=== PATIENT | male | born 1945 | race Caucasian/White ===

== ENCOUNTER → 2020-06-22 10:24 | Outpatient (BNVA) | payer OTHER, SELFPAY | PROVIDERS: Family Provider Family Medicine; PCP Nurse Practitioner; Visit Provider Internal Medicine | DX: M35.3 Polymyalgia rheumatica (principal); F17.220 Nicotine dependence, chewing tobacco, uncomplicated | CPT/HCPCS: 99203 ==

== ENCOUNTER 2020-07-05 09:12 | Outpatient (CLI) | payer OTHER, SELFPAY ==
--- NOTE | 2020-07-05 09:16 | US_ITS ---
WS: [id number] THYROID ULTRASOUND (TI-RADS CRITERIA) History: RIGHT neck mass.. Technique: Ultrasound examination of the thyroid and adjacent soft tissues is performed. FINDINGS: Right lobe: 4.8 cm x 2.2 cm x 2.4 cm. Volume: 13.0 cm3. Moderately enlarged thyroid lobe coarsened echotexture. There are several hypoechoic nodules througho ut the gland. These nodules contain central echogenic foci with comet tail artifact. Isoechoic mass w ith a maximum diameter of 8 mm in the mid thyroid. Left lobe: 5.9 cm x 2.1 cm x 1.7 cm. Volume: 11.0 cm3. Moderately enlarged thyroid lobe. Coarsened echotexture. Multiple hypoechoic nodules are present. Hyp oechoic nodule contains echogenic foci with comet tail artifact. Isthmus: 0.5 cm. US/US thyroid [id number] Impression: 1. Enlarged thyroid with bilateral colloid cysts and subcentimeter nodules. 2. No ultrasound follow-up necessary of any of the nodules.
== END 2020-07-05 09:13 | disposition home or self-care (01) ==
LOC: RAD 09:15
PROVIDERS: PCP Nurse Practitioner; Visit Provider Nurse Practitioner
DX: R22.1 Localized swelling, mass and lump, neck (principal); E04.9 Nontoxic goiter, unspecified
CPT/HCPCS: 76536

== ENCOUNTER → 2020-07-26 09:40 | Outpatient (BNVA) | payer OTHER, SELFPAY | PROVIDERS: PCP Nurse Practitioner; Visit Provider Internal Medicine | DX: M35.3 Polymyalgia rheumatica (principal); Z79.52 Long term (current) use of systemic steroids; I10 Essential (primary) hypertension; F17.220 Nicotine dependence, chewing tobacco, uncomplicated | CPT/HCPCS: 99213; 99214 ==

== ENCOUNTER → 2020-09-28 08:42 | Outpatient (BNVA) | payer OTHER, SELFPAY | PROVIDERS: PCP Nurse Practitioner; Visit Provider Internal Medicine | DX: M35.3 Polymyalgia rheumatica (principal); Z79.52 Long term (current) use of systemic steroids; F17.220 Nicotine dependence, chewing tobacco, uncomplicated; Z11.59 Encounter for screening for other viral diseases | CPT/HCPCS: 99214 ==

== ENCOUNTER → 2020-12-28 09:00 | Outpatient (BNVA) | payer OTHER, SELFPAY | PROVIDERS: PCP Nurse Practitioner; Visit Provider Internal Medicine | DX: M35.3 Polymyalgia rheumatica (principal); M32.9 Systemic lupus erythematosus, unspecified; Z79.899 Other long term (current) drug therapy; Z79.52 Long term (current) use of systemic steroids; Z11.1 Encounter for screening for respiratory tuberculosis; F17.220 Nicotine dependence, chewing tobacco, uncomplicated | CPT/HCPCS: 36415; 83516; 86480; 99213; 99214 ==

== ENCOUNTER → 2021-02-21 14:22 | Outpatient (BNVA) | payer OTHER, SELFPAY | PROVIDERS: PCP Nurse Practitioner; Referring Provider Nurse Practitioner; Visit Provider Urology | DX: R97.20 Elevated prostate specific antigen [PSA] (principal); Z80.42 Family history of malignant neoplasm of prostate | CPT/HCPCS: 81003; 84153 ==

== ENCOUNTER → 2021-05-01 14:21 | Outpatient (BNVA) | payer OTHER, SELFPAY | PROVIDERS: PCP Nurse Practitioner; Visit Provider Internal Medicine | DX: M35.3 Polymyalgia rheumatica (principal); Z79.899 Other long term (current) drug therapy; Z79.52 Long term (current) use of systemic steroids; Z87.891 Personal history of nicotine dependence | CPT/HCPCS: 99214 ==

== ENCOUNTER → 2021-07-25 11:16 | Outpatient (BNVA) | payer OTHER, SELFPAY | PROVIDERS: PCP Nurse Practitioner; Visit Provider Internal Medicine | DX: Z79.899 Other long term (current) drug therapy (principal); M35.3 Polymyalgia rheumatica | CPT/HCPCS: 80053; 82550; 85025; 85651; 86140 ==

== ENCOUNTER → 2021-08-07 09:46 | Outpatient (BNVA) | payer OTHER, SELFPAY | PROVIDERS: PCP Nurse Practitioner; Visit Provider Internal Medicine | DX: M35.3 Polymyalgia rheumatica (principal); Z79.899 Other long term (current) drug therapy; Z79.52 Long term (current) use of systemic steroids; R21 Rash and other nonspecific skin eruption; Z87.891 Personal history of nicotine dependence | CPT/HCPCS: 99214 ==

== ENCOUNTER → 2021-11-01 10:25 | Outpatient (BNVA) | payer OTHER, SELFPAY | PROVIDERS: PCP Nurse Practitioner; Visit Provider Internal Medicine | DX: M35.3 Polymyalgia rheumatica (principal); Z79.899 Other long term (current) drug therapy; Z79.52 Long term (current) use of systemic steroids; F17.220 Nicotine dependence, chewing tobacco, uncomplicated | CPT/HCPCS: 99214 ==

== ENCOUNTER → 2021-11-06 12:55 | Outpatient (BNVA) | payer OTHER, SELFPAY | PROVIDERS: PCP Nurse Practitioner; Visit Provider Urology | DX: R97.20 Elevated prostate specific antigen [PSA] (principal); Z80.42 Family history of malignant neoplasm of prostate | CPT/HCPCS: 81003; 84153 ==

== ENCOUNTER → 2022-04-09 13:33 | Outpatient (BNVA) | payer OTHER, SELFPAY | PROVIDERS: PCP Nurse Practitioner; Referring Provider Internal Medicine Rheumatology; Visit Provider Internal Medicine Rheumatology | DX: M35.3 Polymyalgia rheumatica (principal); Z79.899 Other long term (current) drug therapy | CPT/HCPCS: 80053; 82550; 85025; 85651; 86140 ==

== ENCOUNTER 2022-05-17 09:04 | Outpatient (CLI) | payer OTHER, SELFPAY ==
[2022-05-17 09:59] LABS: Prostate Specific AG Urology 3.48 ng/mL (0-4)
== END 2022-05-17 09:05 | disposition home or self-care (01) ==
LOC: LAB 09:10
PROVIDERS: PCP Nurse Practitioner; Visit Provider Urology
DX: R97.20 Elevated prostate specific antigen [PSA] (principal); Z80.42 Family history of malignant neoplasm of prostate
CPT/HCPCS: 36415; 81003; 84153; 99213

== ENCOUNTER → 2022-07-31 09:33 | Outpatient (BNVA) | payer OTHER, SELFPAY | PROVIDERS: PCP Nurse Practitioner; Visit Provider Internal Medicine | DX: M19.90 Unspecified osteoarthritis, unspecified site (principal); M35.3 Polymyalgia rheumatica; Z79.899 Other long term (current) drug therapy | CPT/HCPCS: 80053; 85025; 85651; 86140 ==

== ENCOUNTER → 2022-11-02 10:45 | Outpatient (BNVA) | payer OTHER, SELFPAY | PROVIDERS: PCP Nurse Practitioner; Visit Provider Internal Medicine | DX: M35.3 Polymyalgia rheumatica (principal); R97.20 Elevated prostate specific antigen [PSA]; R21 Rash and other nonspecific skin eruption; Z79.52 Long term (current) use of systemic steroids | CPT/HCPCS: 99213 ==

== ENCOUNTER → 2022-11-13 14:52 | Outpatient (BNVA) | payer OTHER, SELFPAY | PROVIDERS: PCP Nurse Practitioner; Referring Provider Nurse Practitioner; Visit Provider Nurse Practitioner Family | DX: L21.8 Other seborrheic dermatitis (principal); L57.0 Actinic keratosis; I87.2 Venous insufficiency (chronic) (peripheral) | CPT/HCPCS: 17000; 17003; 99204 ==

== ENCOUNTER → 2023-03-06 10:34 | Outpatient (BNVA) | payer OTHER, SELFPAY | PROVIDERS: PCP Nurse Practitioner; Visit Provider Internal Medicine | DX: M35.3 Polymyalgia rheumatica (principal) | CPT/HCPCS: 80053; 85025; 85651; 86140 ==

== ENCOUNTER → 2023-03-08 09:02 | Outpatient (BNVA) | payer OTHER, SELFPAY | PROVIDERS: PCP Nurse Practitioner; Visit Provider Internal Medicine | DX: M35.3 Polymyalgia rheumatica (principal); Z79.899 Other long term (current) drug therapy | CPT/HCPCS: 99214 ==

== ENCOUNTER → 2023-08-09 08:28 | Outpatient (BNVA) | payer OTHER, SELFPAY | PROVIDERS: PCP Nurse Practitioner; Visit Provider Internal Medicine | DX: M35.3 Polymyalgia rheumatica (principal); Z79.899 Other long term (current) drug therapy | CPT/HCPCS: 80053; 85025; 85651; 86140; 99214 ==

== ENCOUNTER → 2023-11-26 09:13 | Outpatient (BNVA) | payer OTHER, SELFPAY | PROVIDERS: PCP Nurse Practitioner; Referring Provider Internal Medicine Rheumatology; Visit Provider Internal Medicine Rheumatology | DX: Z79.899 Other long term (current) drug therapy (principal); M35.3 Polymyalgia rheumatica | CPT/HCPCS: 80076; 82565; 85025; 86140 ==

== ENCOUNTER → 2023-11-27 08:56 | Outpatient (BNVA) | payer OTHER, SELFPAY | PROVIDERS: PCP Nurse Practitioner; Visit Provider Internal Medicine Rheumatology | DX: M35.3 Polymyalgia rheumatica (principal); M25.50 Pain in unspecified joint; Z79.899 Other long term (current) drug therapy | CPT/HCPCS: 99214 ==

== ENCOUNTER 2024-05-22 10:20 | Outpatient (CLI) | payer OTHER, SELFPAY ==
[2024-05-22 10:47] LABS: Basophils % 0.4 %; Eosinophils # 0.1 10^3/uL (0.0-0.8); Eosinophils % 2.5 %; Hematocrit 46.7 % (37-53); Lymphocytes # 1.4 10^3/uL (0.8-4.8); Lymphocytes % 25.6 %; Mean Corpuscular HGB Conc 33.2 g/dL (30-55); Mean Corpuscular Hemoglobin 30.3 pg (27-33); Mean Corpuscular Volume 91.2 fl (82-101); Mean Platelet Volume 9.1 fL (7.4-10.4); Monocytes # 0.5 10^3/uL (0.2-0.9); Monocytes % 9.3 %; Neutrophils # 3.26 10^3/uL (1.8-7.7); Neutrophils % 61.8 %; Nucleated Red Blood Cells % 0 %; Platelet Count 235 10^3/cmm (157-399); Red Blood Count 5.12 10^6/uL (3.85-5.65); Red Cell Distribution Width 13.2 % (12.1-15.1); White Blood Count 5.27 10^3/uL (3.29-11.43)
[2024-05-22 11:10] LABS: Alanine Aminotransferase 19 U/L (0-41); Albumin Level 4.1 g/dL (3.5-5.2); Alkaline Phosphatase 79 U/L (40-130); Aspartate Amino Transferase 15 U/L (0-40); C Reactive Protein 8.3 mg/L (0.0-4.9); Globulin 2.5 g/dL (1.3-4.6); Total Bilirubin 0.4 mg/dL (0.15-1.2); Total Protein 6.6 g/dL (6.6-8.7)
== END 2024-05-22 10:21 | disposition home or self-care (01) ==
PROVIDERS: PCP Nurse Practitioner; Visit Provider Internal Medicine Rheumatology
DX: M35.3 Polymyalgia rheumatica (principal)
CPT/HCPCS: 36415; 80076; 82565; 85025; 86140

== ENCOUNTER → 2024-05-27 08:59 | Outpatient (BNVA) | payer OTHER, SELFPAY | PROVIDERS: PCP Nurse Practitioner; Visit Provider Internal Medicine Rheumatology | DX: M35.3 Polymyalgia rheumatica (principal); Z79.899 Other long term (current) drug therapy; M13.0 Polyarthritis, unspecified | CPT/HCPCS: 99214 ==

== ENCOUNTER → 2024-10-28 10:24 | Outpatient (BNVA) | payer OTHER, SELFPAY | PROVIDERS: PCP Nurse Practitioner; Referring Provider Nurse Practitioner; Visit Provider Nurse Practitioner Family | DX: L21.8 Other seborrheic dermatitis (principal); I87.2 Venous insufficiency (chronic) (peripheral); L82.1 Other seborrheic keratosis; L82.0 Inflamed seborrheic keratosis; Z78.9 Other specified health status; L29.89 Other pruritus; L57.0 Actinic keratosis | CPT/HCPCS: 17000; 17110; 99214 ==

== ENCOUNTER 2024-11-09 13:37 | Outpatient (CLI) | payer OTHER, MEDICARE, SELFPAY ==
--- NOTE | 2024-11-09 13:47 | CT_ITS ---
WS: [id number] CT chest w con* [id number] HISTORY: DENSITY SUPERIMPOSING T2 ?OSTEOARTHRITIS TECHNIQUE: Axial imaging performed through the thorax. Coronal and sagittal reformats are submitted. All CT scans at [facility] use at least one of these dose optimization techniques: automated exposure control; mA and/or kV adjustment per patient size (includes targeted exams where dose is matched to clinical indication); or iterative reconstruction. CONTRAST: Omnipaque 350; 100 mL IV. DLP: 585.25 mGy.cm COMPARISON: None available. Lungs and central airway: 3 mm pleural nodule LEFT upper lobe. No pulmonary mass or pneumonia. Subsegmental atelectasis RIGHT middle lobe and RIGHT lower lobe. No endobronchial lesions. Pleura: Normal. No pleural effusion. Heart and pericardium: Normal size heart with no pericardial effusion. Mediastinum and quyen: No mediastinum or hilar adenopathy. Vessels: Mild atherosclerosis aorta. Minimally ectatic ascending aorta up to 3.7 cm. Normal pulmonary artery. Chest wall and lower neck: Bilateral thyroid nodules. The largest LEFT lower lobe is 11 mm. No adenopathy. No chest wall abnormalities. Upper abdomen: Diffuse hepatic steatosis. Normal portal vein. Normal RIGHT adrenal gland. 12 mm LEFT adrenal adenoma. Prior cholecystectomy. Supraumbilical hernia containing fat only. Osseous structures: RIGHT anterolateral hypertrophic osteophytes. No T2 abnormality. No rib lesions. Mild bilateral SC joint disease. CT/CT chest w con* [id number] IMPRESSION: 1. No destructive lesion at T2. 2. RIGHT lateral hypertrophic osteophytes from T3-T12. 3. No pulmonary mass or nodule. 4. Minimally ectatic thoracic aorta. 5. LEFT adrenal adenoma. 6. Supraumbilical hernia contains fat only.
[2024-11-09] MEDS: iohexol 350 mg/mL 500 mL Btl (per mL) IV (14:11)
== END 2024-11-09 13:38 | disposition home or self-care (01) ==
LOC: RAD 13:41
PROVIDERS: PCP Nurse Practitioner; Visit Provider Nurse Practitioner
DX: Z01.89 Encounter for other specified special examinations (principal); M25.78 Osteophyte, vertebrae; D35.02 Benign neoplasm of left adrenal gland; K43.9 Ventral hernia without obstruction or gangrene; R91.1 Solitary pulmonary nodule; J98.11 Atelectasis; I70.0 Atherosclerosis of aorta; E04.1 Nontoxic single thyroid nodule; E04.2 Nontoxic multinodular goiter; K76.0 Fatty (change of) liver, not elsewhere classified; Z90.49 Acquired absence of other specified parts of digestive tract; M25.80 Other specified joint disorders, unspecified joint
CPT/HCPCS: 71260

== ENCOUNTER → 2025-06-17 14:31 | Outpatient (BNVA) | payer OTHER, SELFPAY | PROVIDERS: PCP Nurse Practitioner; Visit Provider Orthopaedic Surgery | DX: S52.531A Colles' fracture of right radius, initial encounter for closed fracture (principal); W19.XXXA Unspecified fall, initial encounter | CPT/HCPCS: 25600; 73110; 99203 ==

== ENCOUNTER → 2025-06-30 10:43 | Outpatient (BNVA) | payer OTHER, SELFPAY | PROVIDERS: PCP Nurse Practitioner; Visit Provider Internal Medicine Rheumatology | DX: M35.3 Polymyalgia rheumatica (principal); M13.0 Polyarthritis, unspecified; Z79.899 Other long term (current) drug therapy | CPT/HCPCS: 36415; 80076; 82565; 85025; 85651; 86140; 99214 ==

== ENCOUNTER → 2025-07-20 08:20 | Outpatient (BNVA) | payer OTHER, SELFPAY | PROVIDERS: PCP Nurse Practitioner; Visit Provider Orthopaedic Surgery | DX: S52.531D Colles' fracture of right radius, subsequent encounter for closed fracture with routine healing (principal); W19.XXXD Unspecified fall, subsequent encounter | CPT/HCPCS: 73110; 99024; 99213 ==